=== PATIENT | female | born 1935 | race Caucasian/White ===

== ENCOUNTER 2021-03-05 14:44 | Inpatient (IN) | payer OTHER ==
[~2021-03-05] VITALS: Ht 162.5 cm; Wt 62.6 kg
[2021-03-06] MEDS ORDERED: REQUIP2 MG PO (19:28)
[2021-03-06] MEDS ORDERED: RIVASTIGMINE TAR3 M1 PO (19:30)
[2021-03-06] MEDS ORDERED: CYMBALTA60 MG PO (19:30)
[2021-03-06] MEDS ORDERED: MELATONIN10 M2 PO (19:31)
[2021-03-06] MEDS ORDERED: NAMENDA-5 PO (19:31)
[2021-03-06] MEDS ORDERED: CO Q10100 MG PO (19:32)
[2021-03-06] MEDS ORDERED: MAGNESIUM OXID500 MG PO (19:33)
[2021-03-06] MEDS ORDERED: SYNTHROID,LEVO75 MCG PO (19:34)
[2021-03-06] MEDS ORDERED: [UNRECOGNIZED DRUG - OTHER] T (19:35)
[2021-03-06] MEDS ORDERED: ATARAX,VISTARIL10 MG PO (19:38)
[2021-03-06] MEDS ORDERED: SENNA-S TABLET1 EACH PO (19:39)
[2021-03-06] MEDS ORDERED: GOOD NEIGHBOR M25 M1 PO (19:41)
[2021-03-06] MEDS ORDERED: DULCOLAX10 M1 R (19:42)
[2021-03-06] MEDS ORDERED: PANTOPRAZOLE SO40 MG PO (19:45)
[2021-03-06 20:00] VITALS: BP 137/61
[2021-03-07 06:14] LABS: BASO # 0.1 10*3/uL (0.0-0.1); BASO % 0.8 % (0.0-1.0); EOS # 0.1 10*3/uL (0.0-0.4); EOS % 1.6 % (1.0-4.0); HEMATOCRIT 39.6 % (37.0-47.0); LYMPH # 1.7 10*3/uL (1.3-4.4); LYMPH % 23.4 % (27.0-41.0); MEAN CELL VOLUME 85.5 fl (81.0-99.0); MEAN CORPUSCULAR HGB 28.7 pg (27.0-31.0); MEAN CORPUSCULAR HGB CONC 33.6 g/dl (33.0-37.0); MEAN PLATELET VOLUME 8.4 fl (9.6-12.3); MONO # 0.5 10*3/uL (0.1-1.0); MONO % 6.6 % (3.0-9.0); NEUT % 67.2 % (47.0-73.0); PLATELET COUNT AUTOMATED 251 10*3/uL (130-400); RED BLOOD COUNT 4.63 10*6/uL (4.10-5.10); RED CELL DISTRI WIDTH 12.6 % (0-14.5); WHITE BLOOD COUNT 7.4 10*3/uL (4.8-10.8)
[2021-03-07 06:31] LABS: ALBUMIN 3.3 gm/dl (3.1-4.5); ALKALINE PHOSPHATASE 79 U/L (45-117); BUN 16 mg/dl (7-24); CHLORIDE 110 mmol/L (98-107); CHOLESTEROL 171 mg/dL (<200); CREATININE 0.73 mg/dL (0.55-1.02); LDL CHOLESTEROL 101 mg/dL (9-159); POTASSIUM 3.9 mmol/L (3.5-5.1); SGOT/AST 19 IU/L (3-35); SGPT/ALT 23 U/L (12-78); SODIUM 141 mmol/L (136-145); TOTAL PROTEIN 6.6 gm/dL (6.4-8.2); TRIGLYCERIDES 112 mg/dl (<150)
[2021-03-07 08:00] VITALS: BP 155/70
[2021-03-07 08:52] LABS: VITAMIN D, 25-HYDROXY 18.2 ng/mL (30-100)
[2021-03-07] MEDS ORDERED: Synthroid,Levo50 MCG PO (19:33)
[2021-03-08 08:00] VITALS: BP 111/67
[2021-03-08 20:00] VITALS: BP 116/63
[2021-03-09 07:34] VITALS: BP 121/60
[2021-03-09 20:00] VITALS: BP 116/51
[2021-03-09 21:36] LABS: BILIRUBIN Negative (Negative); BLOOD Trace-Lysed (Negative); CLARITY Cloudy (Clear); COLOR Yellow (Yellow); GLUCOSE Negative (Negative); KETONE Negative (Negative); LEUKO ESTERASE Negative (Negative); NITRITE Negative (Negative); PH 5.5 (4.5-8.0); UROBILINOGEN 0.2 E.U./dl (0.0-1.0)
[2021-03-09 22:00] LABS: BACTERIA 4+
[2021-03-10 08:00] VITALS: BP 125/80
[2021-03-10 20:00] VITALS: BP 127/61
[2021-03-11 07:42] VITALS: BP 124/53
[2021-03-11 20:00] VITALS: BP 137/72
[2021-03-12 08:04] VITALS: BP 106/50
[2021-03-12] MEDS ORDERED: DULOXETINE HCL60 MG PO (10:08)
[2021-03-12] MEDS ORDERED: MEMANTINE HCL10 MG PO (10:08)
[2021-03-12] MEDS ORDERED: MELATONIN5 M7 PO (10:08)
[2021-03-12] MEDS ORDERED: RIVASTIGMINE T1.5 M1 PO (10:08)
[2021-03-12] MEDS ORDERED: VITAMIN D3125 MC1 PO (10:08)
[2021-03-12] MEDS ORDERED: RISPERIDONE M-0.5 MG OGT (10:08)
== END 2021-03-12 12:30 | DRG 883 ==
LOC: 3N 14:44
PROVIDERS: ADMIT Psychiatry & Neurology Psychiatry; ATTEND Psychiatry & Neurology Psychiatry
DX: F63.81 Intermittent explosive disorder (principal); F33.9 Major depressive disorder, recurrent, unspecified; N30.01 Acute cystitis with hematuria; F02.81 Dementia in other diseases classified elsewhere, unspecified severity, with behavioral disturbance; Z20.822 Contact with and (suspected) exposure to COVID-19; I10 Essential (primary) hypertension; E03.9 Hypothyroidism, unspecified; K21.9 Gastro-esophageal reflux disease without esophagitis; E87.8 Other disorders of electrolyte and fluid balance, not elsewhere classified; E55.9 Vitamin D deficiency, unspecified; G30.9 Alzheimer's disease, unspecified; Z79.899 Other long term (current) drug therapy